=== PATIENT | male | born 1955 | race Caucasian/White ===

== ENCOUNTER 2024-02-21 08:28 | Emergency (ER) | payer OTHER, SELFPAY ==
[2024-02-21 08:33] VITALS: BP 191/86; PULSE 93; O2SAT 97
[2024-02-21 08:34] VITALS: BP 191/86; PULSE 88; RESP 16; O2SAT 97; BMI 21.1
--- NOTE | 2024-02-21 08:35 | ED.GENADULT ---
HPI - General Adult General Chief complaint: Urogenital-Male Stated complaint: urinary retention Time Seen by Provider: 02/21/24 08:30 Source: patient Mode of arrival: Ambulatory Limitations: no limitations History of Present Illness HPI narrative: Patient is a 68-year-old male. Has a history of BPH. States his last urination was about 9 hours ago. Is here for evaluation of the inability to urinate and lower abdominal pain. He has never had an issue with retaining urine in the past. Has never had a Bourne catheter in the past. Denies any other associated symptoms. Related Data Allergies Allergy/AdvReac Type Severity Reaction Status Date / Time No Known Drug Allergies Allergy Verified 02/21/24 08:58 Review of Systems Review of Systems Narrative: See HPI Exam Initial Vital Signs Initial Vital Signs: Vital Signs Pulse Rate 88 02/21/24 08:34 Respiratory Rate 16 02/21/24 08:34 Blood Pressure 191/86 H 02/21/24 08:34 Pulse Oximetry 97 02/21/24 08:34 Oxygen Delivery Method Room Air 02/21/24 08:34 GI Inspection: normal to inspection and distended (Suprapubic region) Palpation: tender External: normal external exam Skin General: no rashes or lesions noted Neuro General: patient alert, patient awake, patient oriented x3 and moves all extremities Course Orders Ordered: ED Orders 02/21/24 08:50 Urinalysis and Microscopic Stat Discontinued Medications Lidocaine HCl (Lidocaine 2% (Glydo) 6 Ml Gel) 6 ml TOP NOW ONE Stop: 02/21/24 08:35 Last Admin: 02/21/24 08:40 Dose: 6 ml Documented By: GIL Vital Signs Vital signs: Vital Signs - 8 hr 02/21/24 08:34 02/21/24 08:37 Temperature 98.5 F Pulse Rate 88 Respiratory Rate 16 Blood Pressure 191/86 H Pulse Oximetry 97 Oxygen Delivery Method Room Air Medical Decision Making Lab Data Labs: Lab Results 02/21/24 Range/Units 08:50 Urine Color Yellow Urine Appearance Clear Urine pH 5.5 (4.5-8.0) Ur Specific [place] 1.015 (1.000-1.035) Urine Protein Negative (Negative) Urine Glucose (UA) Negative (Negative) g/dL Urine Ketones Negative (NEGATIVE) Urine Occult Blood 3+ H (Negative) Urine Nitrate Negative (Negative) Urine Bilirubin Negative (NEGATIVE) Urine Urobilinogen 0.2 (0.2) E.U./dL Ur Leukocyte Esterase Negative (NEGATIVE) Urine RBC 30-100/hpf H (0-5/HPF) Urine WBC 0-1/hpf (0-5/HPF) Ur Squamous Epith Cells 0-1 /hpf (0-5/HPF) Urine Bacteria None seen (None) Ur Culture Indicated? Cult not indicated Vol Urine Centrifuged 10ml (spun) MDM Narrative Medical decision making narrative: Patient does have history of BPH. Urinalysis is not consistent with a UTI. Bladder scan had almost 900 cc. Bourne catheter placed with return of greater than 1 L. I suspect that his symptoms are related to his BPH. No indication for antibiotics. Will discharge home with Bourne catheter in place and instructions to follow-up with urology. He was given return precautions. He expressed understanding and agreement with the plan. Discharge Plan Departure Patient Disposition: Home Clinical Impression: Acute retention of urine Instructions: How to Care for Your Bourne Catheter -- Male, DI for Urinary Retention in Men Activity Restrictions/Additional Instructions: You are going to need follow-up with Urology. You can contact urologist who you have seen in the past or you can contact the urologist of the number provided below here at this facility. Continue to take all of your medications as directed. Return to the emergency department for new or worsening symptoms. Referrals: Vicente Dunbar MD [Physician] - Stand Alone Forms: Patient Portal/API
[2024-02-21 08:37] VITALS: TEMP 36.9
[2024-02-21] MEDS: LIDOCAINE 2% (GLYDO) 6 ML GEL TOP (08:40)
[2024-02-21 08:52] VITALS: BP 131/60; PULSE 75; O2SAT 98
[2024-02-21 09:00] VITALS: BP 123/56; PULSE 69; O2SAT 98
[2024-02-21 09:04] LABS: Appearance Urine UA CLEAR; Bilirubin Urine UA NEGATIVE (NEGATIVE); Color Urine UA YELLOW; Glucose Urine UA NEGATIVE (Negative); Ketones Urine UA NEGATIVE (NEGATIVE); Leukocyte Esterase Urine UA NEGATIVE (NEGATIVE); Nitrite Urine UA NEGATIVE (Negative); Occult Blood Urine UA 3+ (Negative); Protein Urine UA NEGATIVE (Negative); Specific Gravity Urine UA 1.015 (1.000-1.035); Urobilinogen Urine UA 0.2 E.U./dL (0.2); pH Urine UA 5.5 (4.5-8.0)
[2024-02-21 09:14] LABS: Bacteria Urine None Seen; Culture Indicated Urine Cult Not Indicated; RBC Urine 30-100/HPF (0-5/HPF); Squamous Epithelial Cell Urine 0-1 /HPF (0-5/HPF); Urine Volume 10mL (spun); WBC Urine 0-1/HPF (0-5/HPF)
[2024-02-21 09:30] VITALS: BP 120/67; PULSE 69; O2SAT 99
== END 2024-02-21 09:20 | disposition home or self-care (01) ==
PROVIDERS: Emergency Provider Emergency Medicine
DX: R33.9 Retention of urine, unspecified (principal)
CPT/HCPCS: 51702; 51798; 81001; 99283